=== PATIENT | male | born 1950 | race Native Hawaiian/Other Pacific Islander ===

== ENCOUNTER 2018-09-08 18:38 | Emergency (ER) | payer OTHER ==
[~2018-09-08] VITALS: Ht 172.7 cm; Wt 89.8 kg
[~2018-09-08 18:38] MED LIST: CLOZAPINE100 MG PO; CLOZAPINE200 MG PO; DONE5TAB PO; FOLI1TAB26 PO; HALO50IN4 IM; HALO5TAB10 PO; LORA1TAB17 PO; OMEPRAZOLE20 M1 PO; OXCARBAZEPIN300 MG PO; OXCARBAZEPIN600 MG PO; PROVERA10 MG PO; RISPERDAL3 MG PO; TOPIRAMATE25 MG PO; TRAZODONE HYDR150 MG PO; TRAZODONE300 MG PO; UNITH DIRECT100 MCG PO; VITAMIN D50000 UNIT PO
[2018-09-08 19:00] LABS: PLATELET COUNT 355 K/uL (142-355)
[2018-09-08 19:06] LABS: POTASSIUM 3.7 mmol/L (3.6-5.2)
[2018-09-08 19:38] VITALS: BP 123/70; TEMP 97.8
[2018-09-08] MEDS ORDERED: TRAZODONE HYDR150 MG PO (20:49)
[2018-09-08] MEDS ORDERED: MEMANTINE HCL5 MG PO (20:49)
== END 2018-09-08 19:38 | disposition home or self-care (01) ==
LOC: ED 18:38
PROVIDERS: Family Medicine
DX: F20.89 Other schizophrenia (principal); E03.8 Other specified hypothyroidism; R46.89 Other symptoms and signs involving appearance and behavior; Z04.6 Encounter for general psychiatric examination, requested by authority
CPT/HCPCS: 36415; 80053; 81000; 85027; 93005; 99285